=== PATIENT | female | born 1990 | race Caucasian/White ===

== ENCOUNTER 2021-07-14 14:00 | Emergency (ER) | payer MEDICAID ==
[~2021-07-14] VITALS: Ht 170.2 cm; Wt 55.3 kg
--- NOTE | 2021-07-14 14:00 | NUR ---
MD at bedside, medical screening exam in progress.
[2021-07-14] MEDS ORDERED: ONDA8TAB13 PO (14:25)
[2021-07-14] MEDS ORDERED: IBUP-1955 PO (14:33)
--- NOTE | 2021-07-14 14:33 | NUR ---
Patient discharged to home in stable condition. Written and verbal after care instructions given. Patient verbalizes understanding of instructions. Stressed follow up or return to ER for worsening s/s.
[2021-07-14 14:41] VITALS: BP 125/80
== END 2021-07-14 14:41 | disposition home or self-care (01) ==
LOC: ER 14:09
DX: S06.0X0A Concussion without loss of consciousness, initial encounter (principal); S13.9XXA Sprain of joints and ligaments of unspecified parts of neck, initial encounter; R40.2362 Coma scale, best motor response, obeys commands, at arrival to emergency department; R40.2142 Coma scale, eyes open, spontaneous, at arrival to emergency department; R40.2252 Coma scale, best verbal response, oriented, at arrival to emergency department; V49.9XXA Car occupant (driver) (passenger) injured in unspecified traffic accident, initial encounter; Y92.410 Unspecified street and highway as the place of occurrence of the external cause
CPT/HCPCS: A4663